=== PATIENT | male | born 1965 | race Caucasian/White ===

== ENCOUNTER 2024-06-05 07:08 | Outpatient (CLI) | payer OTHER, SELFPAY ==
--- NOTE | 2024-06-05 08:49 | P.ANES_ITS ---
Anesthesia Charges Start Date/Time Anesthesia Start Date: 06/05/24 Anesthesia Start Time: 08:16 Stop Date/Time Anesthesia Stop Date: 06/05/24 Anesthesia Stop Time: 08:49 Coding CPT Codes CPT Codes: ARGENIS LWJosh INTST NDSC NOS - [id number] ([id number]) P2 - PATIENT W/MILD SYST DISEASE, QX - CLINICAL TRIAL COORDINATOR SVC W/ MD MED DIRECTION, QK - VICE PRESIDENT OF BUSINESS DEVELOPMENT 2-4 CNCRNT ANES PROC
--- NOTE | 2024-06-05 08:49 | W.ANESCHARGE ---
Anesthesia Charges Start Date/Time Anesthesia Start Date: 06/05/24 Anesthesia Start Time: 08:16 Stop Date/Time Anesthesia Stop Date: 06/05/24 Anesthesia Stop Time: 08:49 Coding CPT Codes CPT Codes: ARGENIS LWJosh INTST NDSC NOS - [id number] ([id number]) P2 - PATIENT W/MILD SYST DISEASE, QX - OUTREACH REPRESENTATIVE SVC W/ MD MED DIRECTION, QK - LATHE SANDER 2-4 CNCRNT ANES PROC
--- NOTE | 2024-06-05 09:34 | P.ANES_ITS ---
Anesthesia Charges Start Date/Time Anesthesia Start Date: 06/05/24 Anesthesia Start Time: 08:16 Stop Date/Time Anesthesia Stop Date: 06/05/24 Anesthesia Stop Time: 08:49 Coding CPT Codes CPT Codes: ARGENIS LWR INTST NDSC NOS - [id number] ([id number]) QK - NURSES SUPERVISOR 2-4 CNCRNT ARGENIS PROC, QX - ENVIRONMENTAL HEALTH AND SAFETY INTERN SVC W/ MD MED DIRECTION, P2 - PATIENT W/MILD SYST DISEASE
--- NOTE | 2024-06-05 09:34 | W.ANESCHARGE ---
Anesthesia Charges Start Date/Time Anesthesia Start Date: 06/05/24 Anesthesia Start Time: 08:16 Stop Date/Time Anesthesia Stop Date: 06/05/24 Anesthesia Stop Time: 08:49 Coding CPT Codes CPT Codes: ARGENIS LWR INTST NDSC NOS - [id number] ([id number]) QK - WICKER WORKER 2-4 CNCRNT ARGENIS PROC, QX - LOGISTICS DIRECTOR SVC W/ MD MED DIRECTION, P2 - PATIENT W/MILD SYST DISEASE
== END 2024-06-05 07:09 | disposition home or self-care (01) ==
LOC: OP CLINIC 07:10
PROVIDERS: PCP Psychiatry & Neurology Psychiatry; Visit Provider Surgery
DX: Z12.11 Encounter for screening for malignant neoplasm of colon (principal); D12.0 Benign neoplasm of cecum; D12.3 Benign neoplasm of transverse colon; K64.8 Other hemorrhoids
CPT/HCPCS: 00811; 45385; 88305; J2704